=== PATIENT | female | born 1975 | race Caucasian/White ===

== ENCOUNTER 2020-05-02 03:36 | Outpatient (CLI) | payer BC, SELFPAY ==
[2020-05-04 19:19] LABS: COVID-19 RT-PCR Result NEGATIVE (Negative)
== END 2020-05-02 03:56 ==
PROVIDERS: PCP Nurse Practitioner Family; Visit Provider Nurse Practitioner Family
DX: Z20.828 Contact with and (suspected) exposure to other viral communicable diseases (principal); Z11.59 Encounter for screening for other viral diseases
CPT/HCPCS: U0003

== ENCOUNTER 2021-04-01 00:58 | Outpatient (CLI) | payer BC, SELFPAY ==
--- NOTE | 2021-04-01 06:15 | DI.MAMMO_ITS ---
Exam(s) MAMMO SCREENING EXAM: MAMMO SCREENING CLINICAL HISTORY: screening,Z12.39. TECHNIQUE: Bilateral full field digital CC and MLO mammographic images were obtained with 3D tomosyn thesis and utilizing computer aided detection (CAD). COMPARISON: None this is a baseline mammogram on this 46-year-old patient. Family history mother di agnosed with breast cancer in her 50s.. FINDINGS: Fibroglandular tissue pattern is moderately dense, this decreasing sensitivity mammogram for finding hidden underlying lesions. There are no obvious spiculated masses nor malignant-appearing microcalcification groups. There is no significant architectural distortion nor skin thickening-retraction. IMPRESSION: Moderately dense fibroglandular tissue. No obvious radiographic evidence of malignancy. Given the d ensity of this patient's fibroglandular tissue and significant family history, I recommend baseline s creening bilateral complete breast ultrasound. BI-RADS Category 2 - Benign Findings Breast Density - Category C - Heterogeneously dense Breast density Category C or D implies that the patient has dense breast tissue. Dense breast tissue can make it harder to find cancer on a mammogram. Dense breast tissue is also associated with an incr eased risk of breast cancer. This information about the result of the mammogram report was provided to the patient to raise their awareness. Use this report when you speak with the patient about their risks for breast cancer, which includes their family history. At that time, you may recommend additional screening tests (Ultrasoun d or MRI) as these tests may add significant information. A negative radiographic report should not delay biopsy if a dominant or clinically suspicious mass is present. Up to ten percent of cancers are not identified on mammography. A negative report may reinforce clinical impression. Adenosis and dense breasts may obscure an underlying neoplasm. False positive reports average 6 to 10%. Patient will receive a letter notifying them of these results.
== END 2021-04-01 01:18 ==
PROVIDERS: PCP Nurse Practitioner; Visit Provider Nurse Practitioner
DX: Z12.31 Encounter for screening mammogram for malignant neoplasm of breast (principal); Z80.3 Family history of malignant neoplasm of breast
CPT/HCPCS: 77063; 77067

== ENCOUNTER 2021-04-15 02:25 | Outpatient (CLI) | payer BC, SELFPAY ==
[2021-04-15 09:50] LABS: HCT 43.6 % (36.0-46.0); HGB 14.4 g/dL (11.2-15.7); MCH 30.6 pg (27.0-33.0); MCV 92.6 fL (80-95); MPV 9.6 fL (8.0-11.0); Platelet Count 225 10^3/uL (130-400); RBC 4.71 10^6/uL (3.93-5.22); RDW 12.6 % (11.7-14.6); WBC 3.81 10^3/uL (4.4-10.8)
[2021-04-15 11:10] LABS: ALT 22 U/L (14-59); AST 14 U/L (15-37); Albumin 4.1 g/dL (3.4-5.0); Alkaline Phosphatase 62 U/L (46-116); Anion Gap 8.8 mmol/L (3-11); BUN 14 mg/dL (7-18); Bilirubin, Total 1.2 mg/dL (0.2-1.0); CO2 28.2 mmol/L (21.0-32.0); CREATININE 0.8 mg/dL (0.55-1.02); Calcium 8.8 mg/dL (8.5-10.1); Calculated LDL 86 mg/dL (<100); Chloride 103 mmol/L (98-107); Cholesterol 159 mg/dL (<200); Glucose 86 mg/dL (74-106); HDL Cholesterol 62 mg/dL (40-60); Potassium 4.1 mmol/L (3.5-5.1); Sodium 140 mmol/L (136-145); Total Protein 7.1 g/dL (6.4-8.2); Triglyceride 59 mg/dL (<150)
== END 2021-04-15 02:26 | disposition home or self-care (01) ==
LOC: LBO 02:25
PROVIDERS: PCP Nurse Practitioner; Visit Provider Nurse Practitioner
DX: Z13.220 Encounter for screening for lipoid disorders; Z87.09 Personal history of other diseases of the respiratory system
CPT/HCPCS: 36415; 80053; 80061; 85027

== ENCOUNTER 2021-04-23 15:33 | Outpatient (REF) | payer BC, SELFPAY ==
[2021-04-24 22:17] LABS: COVID-19 RT-PCR UVMMC Result Negative (Negative)
== END 2021-04-23 15:34 | disposition home or self-care (01) ==
LOC: LBN 15:33
PROVIDERS: PCP Nurse Practitioner; Visit Provider Nurse Practitioner
DX: Z20.822 Contact with and (suspected) exposure to COVID-19; R09.81 Nasal congestion; R05.8 Other specified cough
CPT/HCPCS: U0003

== ENCOUNTER 2021-09-07 15:45 | Outpatient (REF) | payer BC, SELFPAY ==
[2021-09-09 12:05] LABS: COVID-19 RT-PCR UVMMC Result Positive (Negative)
== END 2021-09-07 15:46 | disposition home or self-care (01) ==
LOC: LBN 15:45
PROVIDERS: PCP Nurse Practitioner; Visit Provider Family Medicine
DX: Z20.822 Contact with and (suspected) exposure to COVID-19 (principal); R06.02 Shortness of breath; R50.9 Fever, unspecified; R53.83 Other fatigue
CPT/HCPCS: U0003

== ENCOUNTER → 2021-09-08 10:17 | Outpatient (CLI) | payer BC, SELFPAY ==
--- NOTE | 2021-09-08 10:17 | DI.RAD_ITS ---
Exam(s) XR CHEST 2V PA LATERAL EXAM: XR CHEST 2V PA LATERAL CLINICAL HISTORY: R/O infiltrates Z20.822 EXPOSURE TO COVID 19. TECHNIQUE: 2D digital imaging was performed. COMPARISON: No exams were available for comparison FINDINGS: 2 views: Heart size is normal. The mediastinum is not widened. There are no infiltrates nor pleural effusions. Mild pleural scarring in the left lung base is noted . IMPRESSION: No acute pulmonary infiltrates nor pleural effusions. There is mild pleural scarring in the left deb g base adjacent to the heart border. DATA REPOSITORY: RADIATION DOSE DELIVERED:
== END ==
PROVIDERS: PCP Nurse Practitioner; Visit Provider Family Medicine
DX: J98.4 Other disorders of lung (principal); Z20.822 Contact with and (suspected) exposure to COVID-19
CPT/HCPCS: 71046

== ENCOUNTER 2021-09-24 16:02 | Emergency (ER) | payer BC, SELFPAY ==
[2021-09-24] VITALS (65 sets, daily range): BP systolic 101–134; BP diastolic 61–79; PULSE 81–116; RESP 13–37; TEMP 36.1; O2SAT 95–100
--- NOTE | 2021-09-24 16:00 | RT.EKG_ITS ---
APPROVED REPORT Exam: Resting ECG Reason for Exam: CHEST PAIN Patient Location: E HR:101 bpm ECG Measurements Heart Rate 101 AXIS WV 96 P 82 QRSd 92 QRS 75 QT 302 T -78 QTc 391 Conclusion Sinus tachycardia...rate> 99 Probable left atrial enlargement...P >50mS, <-0.10mV V1 Repol abnrm suggests ischemia, diffuse leads...ST-T neg, ant/lat/inf
--- NOTE | 2021-09-24 16:30 | DI.CT_ITS ---
Exam(s) CT CHEST PE CTA EXAM: CT CHEST PE CTA CLINICAL HISTORY: chest pain, sob, r/o PE. TECHNIQUE: Imaging Protocol: CT angiography of the chest was performed using pulmonary embolus rodríguez col. Multi planar reconstructions were performed. CONTRAST MATERIAL: Intravenous: Omnipaque 350 Contrast volume: 100 cc COMPARISON: No exams were available for comparison FINDINGS: CHEST: PULMONARY ARTERIES: There are no intraluminal filling defects to suggest acute pulmonary emboli. LUNGS: There are no infiltrates nor evidence of pulmonary infarction.. There are no pleural effusions . No ominous pulmonary nodules. MEDIASTINUM: There is no hilar nor mediastinal adenopathy. Visualized thyroid unremarkable. CARDIAC: Heart size is upper normal. There is no significant pericardial effusion.Caliber of the tho racic aorta is within normal limits. There is no significant shift of the interventricular septum. PARTIALLY VISUALIZED UPPERMOST ABDOMEN: No obvious findings OSSEOUS: No significant osseous lesions.. IMPRESSION: 1. No evidence of acute pulmonary emboli. No evidence of pulmonary infarction.No pleural effusions. 2. No infiltrates nor ominous pulmonary nodules. No intrathoracic adenopathy evident. 3. No significant osseous findings. RADIATION DOSE DELIVERED: 339.71mGy.cm Total DLP DATA REPOSITORY: All CT scans at this facility are submitted to the National Radiology Data Registry (NRDR) Dose Index Registry (DIR) with the [employer] (A[employer]). RADIATION OPTIMIZATION: All CT scans at this facility use at least one of these dose optimization te chniques: automated exposure control; mA and/or kV adjustment per patient size (includes targeted exa ms where dose is matched to clinical indication); or iterative reconstruction.
[2021-09-24 16:41] LABS: Abs Immature Grans 0.01 10^3/uL (0.0-0.06); Absolute Basophil Count 0.03 10^3/uL (0.0-0.2); Absolute Eosinophil Count 0.13 10^3/uL (0.0-0.7); Absolute Lymphocyte Count 2.18 10^3/uL (1.2-3.4); Absolute Monocyte Count 0.26 10^3/uL (0.1-0.8); Absolute Neutrophil Count 2.83 10^3/uL (1.2-6.7); Basophils % 0.6; Eosinophils % 2.4; HCT 42.1 % (36.0-46.0); HGB 14.1 g/dL (11.2-15.7); Immature Grans % 0.2; Lymphocytes % 40.1; MCH 30.2 pg (27.0-33.0); MCHC 33.5 % (32.0-36.0); MCV 90 fL (80-95); MPV 9.7 fL (8.0-11.0); Monocytes % 4.8; Neutrophils % 51.9; Platelet Count 212 10^3/uL (130-400); RBC 4.67 10^6/uL (3.93-5.22); RDW 12.2 % (11.7-14.6); RDW-SD 40.5 fL; WBC 5.44 10^3/uL (4.4-10.8)
[2021-09-24 16:56] LABS: ALT 18 U/L (14-59); AST 17 U/L (15-37); Albumin 4.4 g/dL (3.4-5.0); Alkaline Phosphatase 67 U/L (46-116); Anion Gap 15.1 mmol/L (3-11); BUN 14 mg/dL (7-18); Bilirubin, Total 1.2 mg/dL (0.2-1.0); CO2 20.9 mmol/L (21.0-32.0); CREATININE 1.1 mg/dL (0.55-1.02); Calcium 9.2 mg/dL (8.5-10.1); Chloride 104 mmol/L (98-107); Estimated GFR 53.96 (mL/min/1.73m2); Glucose 106 mg/dL (74-106); Magnesium 1.7 mg/dL (1.8-2.4); Potassium 3.1 mmol/L (3.5-5.1); Sodium 140 mmol/L (136-145); Total Protein 7.9 g/dL (6.4-8.2); Troponin I < 50 ng/L (<or=60)
[2021-09-24] MEDS: Omnipaque 350 MG/ML 100 ML BTL IJ (17:37)
--- NOTE | 2021-09-24 17:40 | W.ED.GENAD ---
Discharge Plan Disposition Patient Disposition: HOME Condition: Improving Discharge Details Clinical Impression: Shortness of breath, Sensation of chest tightness, Hand tingling, History of COVID-19 Primary Care Provider: Maryjo Barraza ED Provider: Denita Giordano Home Meds and New Rx's Prescriptions: Continued cholecalciferol (vitamin D3) 50 mcg (2,000 unit) capsule 50 mcg PO DAILY 0RF Discharge Instructions Instructions: Chest Pain (ED), Paresthesia (ED), Dyspnea (ED) Additional Instructions: Your lab work, EKGs and imaging today is reassuring and shows no evidence of acute concerning or significant findings. Your symptoms are potentially due to post-COVID illness. Drink plenty of fluids and get plenty of rest. Alternate tylenol and motrin as needed and directed for pain. You are being sent home with a few doses of Ativan to take as needed and directed for feelings of shortness of breath or anxiety. Follow-up with your primary care doctor in 1 week for reevaluation and for referral for outpatient stress test or cardiac cath tech if your symptoms persist or worsen. Return to the emergency department with any worsening or new concerning symptoms. Discharge Data Discharge Physician: Denita Giordano Medical Decision Making 163 -- 46-year-old female unvaccinated for COVID and diagnosed with COVID on 09/07/2021 presents for chest tightness and shortness of breath for the past few weeks, worse today and associated with tingling and both of her hands and radiating to her left neck. States the tingling resolved after a few hours today. Heart rate 110 on arrival. EKG noted a rate of 101, sinus with diffuse depression but no STEMI. She is afebrile. She appears significantly anxious. Lungs clear bilaterally. Oxygen saturation 100% on room air. Differential diagnosis includes pneumonia, PE, ACS, electrolyte abnormality, post-COVID illness, dehydration. History and presentation does not appear consistent with dissection. She has no focal deficits on exam. Suspect her history of brief bilateral hand paresthesias likely secondary to hyperventilation in the setting of sensation of difficulty breathing and anxiety. Will place an IV, bolus IV fluids, screening labs, CT chest and give fluids, Ativan and reassess. 1930 --labs and imaging reviewed. Normal white blood cell count. Initial BMP noted below bicarb and high anion gap which may be associated with dehydration or patient's recent hyperventilation causing her bilateral hand paresthesias. BMP results normalized after IV fluids. Ct chest negative for PE. There was incidental finding of 4 mm left upper lobe nodule which was discussed with patient and was indicated would not require follow-up as she is a non-smoker without risk factors. Repeat EKG noted resolution of ST depression and no STEMI. Repeat EKG negative. Patient reassessed and she feels much better and she feels comfortable going home. Will send home with a few tabs of Ativan to take as needed and directed for shortness of breath or anxiety. Advised to call her PCP tomorrow for follow-up next week and for referral for outpatient stress test or cardiac cath tech if her symptoms do not improve or worsen. Usual and customary return precautions given prior to discharge. Medical Records Medical records reviewed: Yes I reviewed the patient's medical records. Imaging Data Radiologic Study: Radiologist's impression: CTA Chest With Contrast Exam date and time: 09/24/2021 5:12 PM Age: 46 years old Clinical indication: Other: Chest pain SOB R/O pe TECHNIQUE: Imaging protocol: Computed tomographic angiography of the chest with contrast. 3D rendering (Not supervised by radiologist): MIP and/or 3D reconstructed images were created by the technologist. Total images: 1945 Contrast material: OMNI 350; Contrast volume: 65 ml; Contrast route: INTRAVENOUS (IV);? COMPARISON: CR XR CHEST 2V PA LATERAL 09/08/2021 10:12 AM FINDINGS: Pulmonary arteries: The pulmonary arteries enhance appropriately with no evidence of pulmonary embolism. Aorta: The aorta enhances appropriately without evidence of dissection or aneurysm. No mediastinal hematoma. Thyroid: The visualized thyroid gland demonstrates no gross abnormality. Lungs: No acute tracheobronchial abnormalities. No gross pulmonary infiltrates or edema pattern. Mild bilateral apical pleural/parenchymal scarring. Pleural spaces: 4 mm nodule in the anterior left apex on series 6, image 122 may represent an additional element of apical pleural/parenchymal scarring but is nonspecific. For patients at low risk (minimal or absent history of smoking and of other known risk factors), no routine follow-up is indicated. For patients at high risk (history of smoking or of other known risk factors), consider optional CT at 12 months. (Saúl et al., Fleischner Society, 2017). No pleural effusion. No pneumothorax. Heart: Heart size normal. No pericardial effusion. Mediastinal space: The esophagus is largely contracted but demonstrates no gross abnormality. Lymph nodes: No supraclavicular or axillary adenopathy. No mediastinal or hilar adenopathy. Intraperitoneal space: Visualized upper abdominal structures are unremarkable. Bones/joints: No acute osseous abnormalities are identified. Soft tissues: The soft tissues of the chest wall demonstrate no acute abnormality. IMPRESSION: 1. No evidence of pulmonary embolism or aortic dissection. 2. No acute process. 3. Mild bilateral apical pleural/parenchymal scarring. 4. A 4 mm nodule in the left apex may represent additional element of apical parenchymal scarring but is nonspecific. Please see follow-up recommendations above. Lab Data Lab results reviewed: Yes I reviewed the patient's lab results. Labs: Laboratory Tests Range/Units 09/24/21 09/24/21 09/24/21 16:32 16:32 18:28 WBC (4.4-10.8) 10^3/uL 5.44 RBC (3.93-5.22) 10^6/uL 4.67 Hgb (11.2-15.7) g/dL 14.1 Hct (36.0-46.0) % 42.1 MCV (80-95) fL 90 MCH (27.0-33.0) pg 30.2 MCHC (32.0-36.0) % 33.5 RDW (11.7-14.6) % 12.2 Plt Count (130-400) 10^3/uL 212 MPV (8.0-11.0) fL 9.7 Immature Gran % 0.2 Neutrophils % 51.9 Lymphocytes % 40.1 Monocytes % 4.8 Eosinophils % 2.4 Basophils % 0.6 Nucleated RBC % (0.0-0.3) % 0.0 Absolute Neutrophils (1.2-6.7) 10^3/uL 2.83 Absolute Lymphocytes (1.2-3.4) 10^3/uL 2.18 Absolute Monocytes (0.1-0.8) 10^3/uL 0.26 Absolute Eosinophils (0.0-0.7) 10^3/uL 0.13 Absolute Basophils (0.0-0.2) 10^3/uL 0.03 Sodium (136-145) mmol/L 140 Potassium (3.5-5.1) mmol/L 3.1 L Chloride (98-107) mmol/L 104 Carbon Dioxide (21.0-32.0) mmol/L 20.9 L Anion Gap (3-11) mmol/L 15.1 H BUN (7-18) mg/dL 14 Creatinine (0.55-1.02) mg/dL 1.1 H Estimated GFR/1.73 m2 (mL/min/1.73m2) 53.96 Glucose (74-106) mg/dL 106 Calcium (8.5-10.1) mg/dL 9.2 Magnesium (1.8-2.4) mg/dL 1.7 L Total Bilirubin (0.2-1.0) mg/dL 1.2 H AST (15-37) U/L 17 ALT (14-59) U/L 18 Alkaline Phosphatase (46-116) U/L 67 Troponin I (<or=60) ng/L < 50 < 50 Total Protein (6.4-8.2) g/dL 7.9 Albumin (3.4-5.0) g/dL 4.4 Range/Units 09/24/21 18:28 WBC (4.4-10.8) 10^3/uL RBC (3.93-5.22) 10^6/uL Hgb (11.2-15.7) g/dL Hct (36.0-46.0) % MCV (80-95) fL MCH (27.0-33.0) pg MCHC (32.0-36.0) % RDW (11.7-14.6) % Plt Count (130-400) 10^3/uL MPV (8.0-11.0) fL Immature Gran % Neutrophils % Lymphocytes % Monocytes % Eosinophils % Basophils % Nucleated RBC % (0.0-0.3) % Absolute Neutrophils (1.2-6.7) 10^3/uL Absolute Lymphocytes (1.2-3.4) 10^3/uL Absolute Monocytes (0.1-0.8) 10^3/uL Absolute Eosinophils (0.0-0.7) 10^3/uL Absolute Basophils (0.0-0.2) 10^3/uL Sodium (136-145) mmol/L 141 Potassium (3.5-5.1) mmol/L 3.7 Chloride (98-107) mmol/L 108 H Carbon Dioxide (21.0-32.0) mmol/L 24.3 Anion Gap (3-11) mmol/L 8.7 BUN (7-18) mg/dL 14 Creatinine (0.55-1.02) mg/dL 0.9 Estimated GFR/1.73 m2 (mL/min/1.73m2) >= 60.00 Glucose (74-106) mg/dL 87 Calcium (8.5-10.1) mg/dL 8.2 L Magnesium (1.8-2.4) mg/dL Total Bilirubin (0.2-1.0) mg/dL AST (15-37) U/L ALT (14-59) U/L Alkaline Phosphatase (46-116) U/L Troponin I (<or=60) ng/L Total Protein (6.4-8.2) g/dL Albumin (3.4-5.0) g/dL ECG Data Attestation: I personally reviewed and interpreted this ECG (s) as follows: Interpretation: #1 -- rate of 101, sinus, [address] depression in 2, 3, aVF, V3, V4, V5 and V6. No STEMI. #2 -- rate of 97, sinus, normal axis, ST depression now resolved. No STEMI. HPI General Mode of arrival: ambulatory. Date/Time Provider Initiated Documentation: 09/24/21 16:04. Limitations to Documentation: no limitations. Information obtained by: patient. HPI Narrative: Patient is a 46-year-old female who is unvaccinated for COVID who was diagnosed with COVID on 09/07/2021 who presents with chest tightness and shortness of breath of the last few week, worse today with tingling in her bilateral hands with radiation up the left side of her neck. She states this lasted for few hours and then resolved and denies any at present. She still admits to chest tightness and shortness of breath. She states she has not received any treatment for COVID. She initially had a cough, fever and fatigue and had a positive COVID test. She states since then the cough, fever and fatigue have improved but now has lingering shortness of breath which was worse today. She denies any vomiting or diarrhea. Related Data Home Medications Medication Instructions Recorded Confirmed cholecalciferol (vitamin D3) 50 50 mcg PO DAILY 03/04/21 09/24/21 mcg (2,000 unit) capsule Allergies Allergy/AdvReac Type Severity Reaction Status Date / Time lactase [From Dairy Aid] AdvReac Severe severe Verified 09/24/21 16:15 diarrhea Stuffy nose, coug, headache Allergy Mild Uncoded 09/24/21 16:15 General Stated Complaint: SOB LINDA: 3 Review of Systems All systems reviewed & are unremarkable except as noted in HPI and below Constitutional Constitutional: Denies chills, Denies excessive sweating, Denies fatigue, Denies fever(s), Denies weakness and Denies weight loss Eyes Eyes: Reports system reviewed and no additional complaints, except as documented and Denies blurry vision ENT Ears, Nose, Mouth, and Throat: Denies vertigo, Denies dizziness, Denies otalgia, Denies nasal congestion, Denies sore throat and Denies throat swelling Cardiovascular Cardiovascular: Reports chest pain (chest tightness), Denies syncope, Denies rapid heart rate and Reports dyspnea Respiratory Respiratory: Denies chest congestion, Denies cough, Denies pain on inspiration and Reports dyspnea Gastrointestinal Gastrointestinal: Denies abdominal pain, Denies diarrhea and Denies vomiting Genitourinary Genitourinary: Denies hematuria, Denies dysuria and Denies flank pain Musculoskeletal Musculoskeletal: Denies back pain, Denies joint swelling and Reports tingling (in hands b/l, brief episode) Integumentary/Breasts Skin/Breast: Denies lesions and Denies rash Neurologic Neurologic: Denies behavioral changes, Denies confusion, Denies vertigo, Denies dizziness, Denies syncope, Denies localized weakness, Reports tingling (in hands b/l, brief episode) and Denies weakness Psychiatric Psychiatric: Denies behavioral changes, Denies confusion and Denies depression Endocrine Endocrine: Denies excessive sweating and Denies fatigue Hematologic/Lymphatic Hematologic/Lymphatic: Denies easy bruising and Denies lymphadenopathy Allergic/Immunologic Allergic/Immunologic: Denies throat swelling PFSH All Active Problems (Updated 09/24/21 @ 19:47 by Denita Giordano DO) Shortness of breath (Acute) Sensation of chest tightness (Acute) Hand tingling (Acute) History of COVID-19 (Acute) SARS-CoV-2 positive (Acute ~08/2021) Family history of breast cancer in first degree relative (Acute) Screening for cholesterol level (Acute) Encounter to establish care (Acute) Medical History (Updated 09/24/21 @ 19:47 by Denita Giordano DO) No significant past medical history Surgical History (Updated 09/24/21 @ 19:47 by Denita Giordano DO) History of hernia repair Social History (Updated 03/04/21 @ 08:53 by Farida Red RN) Smoking/Tobacco Use Status: Never Second Hand Exposure: No Smoking risk assessment performed?: Yes Alcohol Intake: never Drug use: Never Substance use type: does not use Adopted: No Caregiver/Support person: No Foster care: No Household members: spouse Housing: house Number of Children: 0 number of grandchildren: 0 Communication Needs: Corrective Lenses Education Level: college Do you need help understanding health information?: Rarely Pets and animals: No Sexually active: Yes Current gender identity: female What is your relationship status?: How often do you talk on the phone with friends or family?: once per week How often do you get together with friends or relatives?: three or more times per week Do you belong to any clubs or organized social groups?: no Panel score (0-1 are the most socially isolated patients): 2 What type of physical activity do you participate in: walking, aerobic and yoga Duration: 60-90 minutes/day Frequency: daily Special morales needs: No Seatbelt use: always Helmet use: Yes Drive intox or ride w/intox route sales delivery driver: No Do you feel safe at home: Yes Do you feel safe in your relationship?: Yes Exam Const General: cooperative and anxious Orientation: alert, awake and oriented x3 HENMT Head: normal to inspection Ears: hearing grossly normal bilaterally, external ears normal and TM's normal bilaterally General nose exam: external nose normal Face and sinus: normal facial exam Mouth: oral mucosae normal Teeth and gingiva: dentition normal Throat: posterior oropharynx normal Eyes General: appearance normal, both eyes and all related structures Eyelids: eyelids normal Pupils: PERRL EOM: EOM intact bilaterally Neck Neck: normal visual inspection Lymphatic: no lymphadenopathy noted Chest Chest: normal inspection of the chest Resp Effort & Inspection: normal respiratory effort and able to speak in complete sentences Auscultation: clear to auscultation bilaterally Cardio Rate: tachycardic Rhythm: regular rhythm GI Inspection: normal to inspection Palpation: soft, not firm, no guarding, no hepatosplenomegaly, no masses and nontender Auscultation: normal bowel sounds Back/Spine/Pelvis Back: no CVA tenderness Skin General skin exam: no rashes or lesions noted Neuro General: patient alert and patient awake Cognition: normal cognition Speech: speech normal Gait: normal gait Motor: muscle tone normal throughout Sensory Exam: no sensory deficits noted Extrem General: normal to inspection, full ROM and capillary refill normal Psych Appearance: grossly normal Mental Status: mental status grossly normal Speech and Movement: speech and movement normal Affect: normal affect Thought Process: normal Course Vital Signs Vital signs: Vital Signs Temperature 97 F L 09/24/21 16:07 Pulse 116 H 09/24/21 16:07 Respiratory Rate 28 H 09/24/21 16:07 Blood Pressure 134/79 09/24/21 16:07 Pulse Oximetry 97 09/24/21 16:07 Temperature 97 F L 09/24/21 16:07 Pulse 85 09/24/21 17:21 Pulse 90 09/24/21 17:00 Respiratory Rate 21 09/24/21 17:29 Respiratory Effort 09/24/21 16:15 Respiratory Depth Shallow 09/24/21 16:15 Respiratory Pattern Tachypnea 09/24/21 16:15 Blood Pressure 117/68 09/24/21 17:21 Blood Pressure Mean 78 09/24/21 16:53 Pulse Oximetry 100 09/24/21 17:29 Oxygen Delivery Method Room Air 09/24/21 16:07 Oxygen Flow Rate 0 09/24/21 16:07 Pain Level 6 09/24/21 16:15 Lab/Test Results Lab/Test Results: Laboratory Tests Range/Units 09/24/21 09/24/21 16:32 16:32 WBC (4.4-10.8) 10^3/uL 5.44 RBC (3.93-5.22) 10^6/uL 4.67 Hgb (11.2-15.7) g/dL 14.1 Hct (36.0-46.0) % 42.1 MCV (80-95) fL 90 MCH (27.0-33.0) pg 30.2 MCHC (32.0-36.0) % 33.5 RDW (11.7-14.6) % 12.2 Plt Count (130-400) 10^3/uL 212 MPV (8.0-11.0) fL 9.7 Immature Gran % 0.2 Neutrophils % 51.9 Lymphocytes % 40.1 Monocytes % 4.8 Eosinophils % 2.4 Basophils % 0.6 Nucleated RBC % (0.0-0.3) % 0.0 Absolute Neutrophils (1.2-6.7) 10^3/uL 2.83 Absolute Lymphocytes (1.2-3.4) 10^3/uL 2.18 Absolute Monocytes (0.1-0.8) 10^3/uL 0.26 Absolute Eosinophils (0.0-0.7) 10^3/uL 0.13 Absolute Basophils (0.0-0.2) 10^3/uL 0.03 Sodium (136-145) mmol/L 140 Potassium (3.5-5.1) mmol/L 3.1 L Chloride (98-107) mmol/L 104 Carbon Dioxide (21.0-32.0) mmol/L 20.9 L Anion Gap (3-11) mmol/L 15.1 H BUN (7-18) mg/dL 14 Creatinine (0.55-1.02) mg/dL 1.1 H Estimated GFR/1.73 m2 (mL/min/1.73m2) 53.96 Glucose (74-106) mg/dL 106 Calcium (8.5-10.1) mg/dL 9.2 Magnesium (1.8-2.4) mg/dL 1.7 L Total Bilirubin (0.2-1.0) mg/dL 1.2 H AST (15-37) U/L 17 ALT (14-59) U/L 18 Alkaline Phosphatase (46-116) U/L 67 Troponin I (<or=60) ng/L < 50 Total Protein (6.4-8.2) g/dL 7.9 Albumin (3.4-5.0) g/dL 4.4 POC- Test(urine) Negative
[2021-09-24] MEDS: LORazepam 2 MG/ML VIAL 0.5 MG IVP (17:52)
[2021-09-24] MEDS: Normal Saline 1,000 ML 1000 ML IV ×2 (17:54→18:42)
--- NOTE | 2021-09-24 18:00 | RT.EKG_ITS ---
APPROVED REPORT Exam: Resting ECG Reason for Exam: chest tightness Patient Location: E HR:97 bpm ECG Measurements Heart Rate 97 AXIS ID 102 P 86 QRSd 95 QRS 74 QT 348 T 3 QTc 442 Conclusion Sinus rhythm...normal P axis, V-rate 60- 99. Sinus. Normal axis. No STEMI. I have reviewed and interpreted ECG and agree with software generated interpretation.
--- NOTE | 2021-09-24 18:07 | DI.VRAD_ITS ---
PROCEDURE INFORMATION: Exam: CTA Chest With Contrast Exam date and time: 09/24/2021 5:12 PM Age: 46 years old Clinical indication: Other: Chest pain SOB R/O pe TECHNIQUE: Imaging protocol: Computed tomographic angiography of the chest with contrast. 3D rendering (Not supervised by radiologist): MIP and/or 3D reconstructed images were created by the technologist. Total images: 1945 Contrast material: OMNI 350; Contrast volume: 65 ml; Contrast route: INTRAVENOUS (IV); COMPARISON: CR XR CHEST 2V PA LATERAL 09/08/2021 10:12 AM FINDINGS: Pulmonary arteries: The pulmonary arteries enhance appropriately with no evidence of pulmonary embolism. Aorta: The aorta enhances appropriately without evidence of dissection or aneurysm. No mediastinal hematoma. Thyroid: The visualized thyroid gland demonstrates no gross abnormality. Lungs: No acute tracheobronchial abnormalities. No gross pulmonary infiltrates or edema pattern. Mild bilateral apical pleural/parenchymal scarring. Pleural spaces: 4 mm nodule in the anterior left apex on series 6, image 122 may represent an additional element of apical pleural/parenchymal scarring but is nonspecific. For patients at low risk (minimal or absent history of smoking and of other known risk factors), no routine follow-up is indicated. For patients at high risk (history of smoking or of other known risk factors), consider optional CT at 12 months. (Saúl et al., Fleischner Society, 2017). No pleural effusion. No pneumothorax. Heart: Heart size normal. No pericardial effusion. Mediastinal space: The esophagus is largely contracted but demonstrates no gross abnormality. Lymph nodes: No supraclavicular or axillary adenopathy. No mediastinal or hilar adenopathy. Intraperitoneal space: Visualized upper abdominal structures are unremarkable. Bones/joints: No acute osseous abnormalities are identified. Soft tissues: The soft tissues of the chest wall demonstrate no acute abnormality. IMPRESSION: 1. No evidence of pulmonary embolism or aortic dissection. 2. No acute process. 3. Mild bilateral apical pleural/parenchymal scarring. 4. A 4 mm nodule in the left apex may represent additional element of apical parenchymal scarring but is nonspecific. Please see follow-up recommendations above. Dictated and Authenticated by: Kahlil Nash MD. Ordering:PAUL Barger MD
[2021-09-24] MEDS: Potassium Chloride 20 MEQ TABCR 40 MEQ PO (18:42)
[2021-09-24 18:49] LABS: Anion Gap 8.7 mmol/L (3-11); BUN 14 mg/dL (7-18); CO2 24.3 mmol/L (21.0-32.0); CREATININE 0.9 mg/dL (0.55-1.02); Calcium 8.2 mg/dL (8.5-10.1); Chloride 108 mmol/L (98-107); Glucose 87 mg/dL (74-106); Potassium 3.7 mmol/L (3.5-5.1); Sodium 141 mmol/L (136-145)
[2021-09-24 18:58] LABS: Troponin I < 50 ng/L (<or=60)
== END 2021-09-24 19:56 | disposition home or self-care (01) ==
PROVIDERS: Emergency Provider Physician Assistant; PCP Nurse Practitioner
DX: R06.02 Shortness of breath (principal); R07.89 Other chest pain; R20.2 Paresthesia of skin; Z86.16 Personal history of COVID-19; Z28.310 Unvaccinated for COVID-19
CPT/HCPCS: 71275; 80048; 80053; 81025; 93005; 96361; 96374; 99285; 83735; 84484; 85025; 93010; 99284; J2060; J3490

== ENCOUNTER → 2022-03-10 12:49 | Outpatient (CLI) | payer BC, SELFPAY ==
--- NOTE | 2022-03-10 10:50 | DI.RAD_ITS ---
Exam(s) XR SHOULDER LT COMPLETE 2+V EXAM: XR SHOULDER LT COMPLETE 2+V CLINICAL HISTORY: bilat shoulder pain, ? calcific tendonitis. TECHNIQUE: 2D digital imaging was performed. COMPARISON: CR XR SHOULDER RT COMPLETE 2+V from 03/10/2022 FINDINGS: Five views: No evidence of fracture or dislocation or abnormal soft tissue calcifications. Subacromial space yaakov ears un remarkable. No degenerative changes evident in the glenohumeral and AC joints. Ipsilateral clavicle appears unremarkable. No os acromiale. IMPRESSION: No significant osseous findings. DATA REPOSITORY: RADIATION DOSE DELIVERED:
--- NOTE | 2022-03-10 10:50 | DI.RAD_ITS ---
Exam(s) XR SHOULDER RT COMPLETE 2+V EXAM: XR SHOULDER RT COMPLETE 2+V CLINICAL HISTORY: bilat shoulder pain, ?calcific tendonitis, m25.512, m25.511. TECHNIQUE: 2D digital imaging was performed. COMPARISON: No exams were available for comparison FINDINGS: Five views: No evidence of fracture or dislocation nor abnormal soft tissue calcification. Subacromial space yaakov ears unremarkable. Minimal degenerative changes in the glenohumeral joint. AC joint appears unremar kable as does the ipsilateral clavicle. Bone density normal. No osseous lesions. IMPRESSION: As above. DATA REPOSITORY: RADIATION DOSE DELIVERED:
== END ==
PROVIDERS: PCP Nurse Practitioner; Visit Provider Nurse Practitioner
DX: M25.511 Pain in right shoulder (principal); M25.512 Pain in left shoulder
CPT/HCPCS: 73030

== ENCOUNTER 2022-03-16 16:03 | Outpatient (CLI) | payer BC, SELFPAY ==
[2022-03-16 16:20] LABS: Abs Immature Grans 0.01 10^3/uL (0.0-0.06); Absolute Basophil Count 0.07 10^3/uL (0.0-0.2); Absolute Eosinophil Count 0.16 10^3/uL (0.0-0.7); Absolute Lymphocyte Count 2.55 10^3/uL (1.2-3.4); Absolute Monocyte Count 0.39 10^3/uL (0.1-0.8); Absolute Neutrophil Count 2.71 10^3/uL (1.2-6.7); Basophils % 1.2; Eosinophils % 2.7; HCT 42.3 % (36.0-46.0); HGB 14.2 g/dL (11.2-15.7); Immature Grans % 0.2; Lymphocytes % 43.3; MCH 30.4 pg (27.0-33.0); MCHC 33.6 % (32.0-36.0); MCV 91 fL (80-95); MPV 8.8 fL (8.0-11.0); Monocytes % 6.6; Platelet Count 326 10^3/uL (130-400); RBC 4.67 10^6/uL (3.93-5.22); RDW 12.3 % (11.7-14.6); RDW-SD 40.9 fL; WBC 5.89 10^3/uL (4.4-10.8)
[2022-03-16 16:46] LABS: ALT 40 U/L (14-59); AST 29 U/L (15-37); Albumin 4.1 g/dL (3.4-5.0); Alkaline Phosphatase 64 U/L (46-116); Anion Gap 5.7 mmol/L (3-11); BUN 14 mg/dL (7-18); Bilirubin, Total 0.5 mg/dL (0.2-1.0); CO2 29.3 mmol/L (21.0-32.0); CREATININE 1.2 mg/dL (0.55-1.02); Calcium 9.1 mg/dL (8.5-10.1); Chloride 103 mmol/L (98-107); Estimated GFR 56.89 (mL/min/1.73m2); Glucose 91 mg/dL (74-106); Potassium 3.8 mmol/L (3.5-5.1); Sodium 138 mmol/L (136-145); Total Protein 7.9 g/dL (6.4-8.2)
== END 2022-03-16 16:04 | disposition home or self-care (01) ==
LOC: LBO 16:05
PROVIDERS: PCP Nurse Practitioner; Visit Provider Family Medicine
DX: T50.905A Adverse effect of unspecified drugs, medicaments and biological substances, initial encounter (principal)
CPT/HCPCS: 36415; 80053; 85025

== ENCOUNTER 2022-07-07 01:07 | Outpatient (CLI) | payer BC, SELFPAY ==
--- NOTE | 2022-07-07 06:30 | DI.MRI_ITS ---
Exam(s) MR UPPER JOINT RT WO EXAM: MR UPPER JOINT RT WO CLINICAL HISTORY: R SHOULDER PAIN,rt rotator cuff tear,m75.101. TECHNIQUE: Multiplanar multisequence MRI was performed. COMPARISON: Plain films 10 March 2022 FINDINGS: BONES: There is no fracture or contusion pattern. Mild focal edema in the superior humeral head near supraspinatus insertion JOINTS:The acromioclavicular joint is normal. The glenohumeral joint is normal. TENDONS: Supraspinatus: Thickening distally with some intrasubstance signal. Focal tear anteriorly at the ins ertion on humeral head. Infraspinatus: Unremarkable. Subscapularis: Unremarkable. Teres Minor: Unremarkable. Biceps and Marion: Unremarkable. MUSCLES: Unremarkable. GLENOID LABRUM: Unremarkable on this noncontrast examination. SOFT TISSUES: Unremarkable. OTHER: Subacromial and subdeltoid bursae shows minimal fluid. IMPRESSION: Supraspinatus tendinosis with tear involving the anterior portion at the insertion. DATA REPOSITORY:
== END 2022-07-07 01:27 ==
LOC: DI 01:07
PROVIDERS: PCP Nurse Practitioner; Visit Provider Student in an Organized Health Care Education/Training Program
DX: M75.101 Unspecified rotator cuff tear or rupture of right shoulder, not specified as traumatic (principal)
CPT/HCPCS: 73221

== ENCOUNTER 2024-01-30 01:18 | Outpatient (CLI) | payer BC, SELFPAY ==
--- NOTE | 2024-01-30 08:45 | DI.MAMMO_ITS ---
Exam(s) MAMMO SCREENING EXAM: MAMMO SCREENING CLINICAL HISTORY: screening Z12.39 TECHNIQUE: Mammograms were interpreted according to the usual protocol including computer analysis w [employer] CAD system, tomosynthesis and C-view imaging. COMPARISON: 2020 FINDINGS: The breasts are composed of heterogeneously dense fibroglandular densities, Breast Density category C . No suspicious masses or suspicious microcalcifications are seen. No skin thickening or abnormal axillary lymph nodes are seen. There has been no significant change from prior exams. IMPRESSION: BI-RADS Category 1, Negative mammogram. Yearly screening mammography is recommended. Breast Density Category C, heterogeneously Dense. The mammogram demonstrates the patient's breast tissue is dense. Dense breast tissue is very common a nd is not abnormal but dense breast tissue can make it harder to find cancer on a mammogram. Also, de nse breast tissue may increase breast cancer risk. This information about the result of the mammogram report was provided to the patient to raise their awareness. Use this report when you speak with the patient about their risks for breast cancer, which includes their family history. At that time, you may recommend additional screening tests (Ultrasound or MRI) as they might be useful based on their r isk. A negative radiographic report should not delay biopsy if a dominant or clinically suspicious mass is present. Up to ten percent of cancers are not identified on mammography. A negative report may reinforce clinical impression. Adenosis and dense breasts may obscure an underlying neoplasm. False positive reports average 6 to 10%.
--- NOTE | 2024-01-30 15:00 | DI.MRI_ITS ---
Exam(s) MR CERVICAL SPINE WO EXAM: MR CERVICAL SPINE WO CLINICAL HISTORY: chronic neck pain G25.89 EXTRAPYRAMIDAL MOVEMENT DISORDER M54.2 CERVICALGIA TECHNIQUE: Multiplanar multisequence MRI of the cervical spine was performed without intravenous con trast. COMPARISON: No exams were available for comparison FINDINGS: BONES: Vertebral body heights are maintained. Alignment is normal. Bone marrow signal intensity is wi thin normal limits. CERVICAL CORD: Craniovertebral junction is unremarkable. The cervical cord is normal size and signal intensity. SOFT TISSUES: Unremarkable. C2-3: No disc herniation or bulge is identified. No evidence of neural foraminal narrowing. No signi ficant central canal stenosis. C3-4: No disc herniation or bulge is identified. No evidence of neural foraminal narrowing. No signif icant central canal stenosis. C4-5: No disc herniation or bulge is identified. No evidence of neural foraminal narrowing. No signif icant central canal stenosis. C5-6: No disc herniation or bulge is identified. No evidence of neural foraminal narrowing. No signif icant central canal stenosis. C6-7: Minimal disc bulging. No focal disc herniation is identified. No evidence of neural foraminal narrowing. No significant central canal stenosis. C7-T1: No disc herniation or bulge is identified. No evidence of neural foraminal narrowing. No signi ficant central canal stenosis. IMPRESSION: Unremarkable MRI of the cervical spine. DATA REPOSITORY:
== END 2024-01-30 01:38 ==
LOC: DI 01:18
PROVIDERS: PCP Nurse Practitioner; Visit Provider Nurse Practitioner
DX: Z12.31 Encounter for screening mammogram for malignant neoplasm of breast (principal); M54.2 Cervicalgia
CPT/HCPCS: 77063; 77067; 72141

== ENCOUNTER 2025-02-07 12:45 | Emergency (ER) | payer BC, SELFPAY ==
[2025-02-07 12:48] VITALS: BP 144/90; PULSE 110; RESP 18; TEMP 36.6; O2SAT 99
[2025-02-07 12:51] VITALS: BP 144/90; PULSE 110; RESP 18; TEMP 36.6; O2SAT 99
--- NOTE | 2025-02-07 13:00 | DI.CT_ITS ---
Exam(s) CT BRAIN NECK CTA EXAM: CT BRAIN NECK CTA CLINICAL HISTORY: neck injury during yoga, PHAN, dizziness, c2 pain. TECHNIQUE: Imaging Protocol: Axial CT angiography was performed with multi- slice acquisition and multi-planar and/or 3D reconstructions. CONTRAST MATERIAL: Intravenous: Omnipaque 350 Contrast volume:structured data in ml COMPARISON: CT CT THORACIC SPINE WO from 02/07/2025 FINDINGS: CTA Neck W: Aortic arch anatomy: The aortic arch anatomy is conventional and there is no significant stenosis at the origin of the great vessels off of the aortic arch. No intimal flap evident. Anterior circulation: Both common carotid arteries ascend with normal luminal diameters. At the level the carotid bulbs and proximal internal carotid arteries there is minimal plaque without hemodynamically significant stenosis evident. Posterior circulation: Both vertebral arteries originate in conventional fashion off of the subclavian arteries and there is no obvious stenosis at the origin of the vertebral arteries. Both vertebral arteries exhibit normal luminal diameters within the foramen transversarium. No evidence of stenosis, thrombosis, nor dissection. However, at C 2-3 and C3-4 levels in the left foramen transverse area and there is some vascular blush around the otherwise normal appearing vertebral arteries. Possibly significant Both vertebral arteries contribute to the formation of the basilar artery at the skull base. CTA Brain W: Anterior circulation: Both internal carotid arteries are patent in the skull base-carotid canals as well as within the cavernous sinuses. The supraclinoid aspects of the ICAs are patent. Both A1 segments are patent as are the anterior cerebral arteries and there is no evidence of aneurysm at the level of the anterior communicating artery. Both middle cerebral arteries are patent with no evidence of significant stenosis nor intraluminal thrombus. There also no aneurysms of these vessels. Posterior circulation: The basilar artery ascends in the midline. Distally it gives off patent bilateral superior cerebellar arteries. Above this level the basilar artery terminates as patent bilateral posterior cerebral arteries. There is no evidence of aneurysm at the tip of the basilar artery nor elsewhere in the [id number]. CT BRAIN: There is no evidence of intracranial hemorrhage, mass effect, or shift of midline structures. There are no extra-axial fluid collections. Ventricles are not enlarged or shifted. There are no ring enhancing lesions in the brain and no abnormal meningeal enhancement. IMPRESSION: 1. Patent carotid arteries in the neck. No hemodynamically significant stenosis. No dissection 2. Patent vertebral arteries. No thrombosis nor dissection. However, the C2-3 and C3-4 left neural foramina there is some vascular blush around the vertebral arteries. This may be artifact and related to slightly later than typical image acquisition on this study (therefore venous). Recommend MRI of the cervical spine. 3. Patent intracranial arteries. No stenosis nor thrombosis nor dissection. No evidence of intracranial hemorrhage, intra or extra-axial. No ring enhancing lesions in the brain. No vascular malformations Report called by myself to ER provider 02/07/2025 at 2:48 p.m. RADIATION DOSE DELIVERED: 2,246.54mGy.cm Total DLP DATA REPOSITORY: All CT scans at this facility are submitted to the National Radiology Data Registry (NRDR) Dose Index Registry (DIR) with the [employer] (A[employer]). RADIATION OPTIMIZATION: All CT scans at this facility use at least one of these dose optimization techniques: automated exposure control; mA and/or kV adjustment per patient size (includes targeted exams where dose is matched to clinical indication); or iterative reconstruction.
--- NOTE | 2025-02-07 13:00 | DI.CT_ITS ---
Exam(s) CT CERVICAL SPINE WO EXAM: CT CERVICAL SPINE WO CLINICAL HISTORY: c2-3 pain, turned neck during yoga. TECHNIQUE: Imaging Protocol: Axial computed tomography images with coronal and sagittal reformatted images were created and reviewed COMPARISON: No exams were available for comparison FINDINGS: CERVICAL SPINE: There is no evidence of acute fracture. No significant prevertebral soft tissue swelling. No significant listhesis. No large disc protrusions evident. No disc space narrowing nor Luschka joint osteophytes. There is no significant facet arthropathy nor facet joint malalignment. No significant osseous lesions evident. Bone density normal IMPRESSION: No evidence of cervical spine fracture, malalignment, nor acute compromise of the cervical spinal canal. RADIATION DOSE DELIVERED: 2,020.07mGy.cm Total DLP DATA REPOSITORY: All CT scans at this facility are submitted to the National Radiology Data Registry (NRDR) Dose Index Registry (DIR) with the [employer] (A[employer]). RADIATION OPTIMIZATION: All CT scans at this facility use at least one of these dose optimization techniques: automated exposure control; mA and/or kV adjustment per patient size (includes targeted exams where dose is matched to clinical indication); or iterative reconstruction.
[2025-02-07 13:18] LABS: Abs Immature Grans 0.01 10^3/uL (0.0-0.06); HCT 42.7 % (36.0-46.0); HGB 14.3 g/dL (11.2-15.7); Immature Grans % 0.1 %; MCH 29.7 pg (27.0-33.0); MCHC 33.5 % (32.0-36.0); MCV 89 fL (80-95); MPV 9.3 fL (8.0-11.0); Platelet Count 228 10^3/uL (130-400); RBC 4.81 10^6/uL (3.93-5.22); RDW 12.2 % (11.7-14.6); RDW-SD 40.1 fL; WBC 7.49 10^3/uL (4.4-10.8)
[2025-02-07] MEDS: ACETAMINOPHEN 500 MG/50 ML BAG 200 MG IVPB (13:24)
[2025-02-07] MEDS: Dexamethasone 10 MG/ML VIAL IVP (13:24)
[2025-02-07] MEDS: diazePAM 10 MG/2 ML SYR 5 MG IVP (13:24)
[2025-02-07] MEDS: Normal Saline 1,000 ML 1000 ML IV (13:24)
[2025-02-07] MEDS: Prochlorperazine 10 MG/2 ML VIAL 5 MG IVP (13:25)
--- NOTE | 2025-02-07 13:30 | DI.CT_ITS ---
Exam(s) CT LUMBAR SPINE WO EXAM: CT LUMBAR SPINE WO CLINICAL HISTORY: back pain. TECHNIQUE: Imaging Protocol: Axial computed tomography images with coronal and sagittal reformatted images were created and reviewed COMPARISON: CT CT THORACIC SPINE WO from 02/07/[address] BRAIN NECK CTA from 02/07/[address] CERVICAL SPINE WO from 02/07/2025 FINDINGS: Bones: There are no fractures, listhesis, nor pars defects. No disc space narrowing. Facet joints appear unremarkable. No degenerative changes. No facet malalignment.No sacral fractures nor lesions. SI joints appear unremarkable. INDIVIDUAL LEVELS: T12-L1:No disc herniation nor canal stenosis. Facet joints unremarkable. No foraminal stenosis. L1-2: No disc herniation nor canal stenosis. Facet joints unremarkable. No foraminal stenosis. L2-3: No disc herniation nor canal stenosis. Facet joints unremarkable. No Foraminal stenosis L3-4: No disc herniation nor significant canal stenosis. Facet joints unremarkable. No foraminal stenosis. L4-5: No disc herniation nor canal stenosis. Facet joints unremarkable. No foraminal stenosis. L5-S1: No disc herniation or canal stenosis. Facet joints unremarkable. No foraminal stenosis. The visualized sacroiliac joints and sacrum appear unremarkable. Sacral canal appears unremarkable. PARASPINAL SOFT TISSUES: Visualized paraspinal tissues appear unremarkable. Normal variant appearance of the transverse process is L1 noted. IMPRESSION: 1. No significant findings on this CT scan of the lumbosacral spinal column. 2. If clinically indicated follow-up MRI can be performed Report called by myself to ER provider 02/07/2025 at 2:30 p.m. RADIATION DOSE DELIVERED: 2,020.07mGy.cm Total DLP DATA REPOSITORY: All CT scans at this facility are submitted to the National Radiology Data Registry (NRDR) Dose Index Registry (DIR) with the [employer] ([employer]). RADIATION OPTIMIZATION: All CT scans at this facility use at least one of these dose optimization techniques: automated exposure control; mA and/or kV adjustment per patient size (includes targeted exams where dose is matched to clinical indication); or iterative reconstruction.
--- NOTE | 2025-02-07 13:30 | DI.CT_ITS ---
Exam(s) CT THORACIC SPINE WO EXAM: CT THORACIC SPINE WO CLINICAL HISTORY: thoracic pain post hyperextension and flexion. TECHNIQUE: Imaging Protocol: Axial computed tomography images with coronal and sagittal reformatted images were created and reviewed. CONTRAST MATERIAL: Intravenous: None COMPARISON: CT CT LUMBAR SPINE WO from 02/07/2025 FINDINGS: Bones: No evidence of thoracic vertebral fractures nor listhesis. No significant facet arthropathy nor facet joint malalignment. There is no scoliosis. Bone density normal. No osseous lesions. No spinal canal stenosis. Soft tissues: There are no large disk herniations seen. No evidence of paraspinal hematoma. IMPRESSION: No significant findings on this CT scan of the thoracic spinal column RADIATION DOSE DELIVERED: 2,020.07mGy.cm Total DLP DATA REPOSITORY: All CT scans at this facility are submitted to the National Radiology Data Registry (NRDR) Dose Index Registry (DIR) with the [employer] ([employer]). RADIATION OPTIMIZATION: All CT scans at this facility use at least one of these dose optimization techniques: automated exposure control; mA and/or kV adjustment per patient size (includes targeted exams where dose is matched to clinical indication); or iterative reconstruction.
[2025-02-07 13:31] LABS: ESR 9 mm/hr (0-20)
[2025-02-07 13:42] LABS: ALT 21 U/L (14-59); AST 18 U/L (15-37); Albumin 4.6 g/dL (3.4-5.0); Alkaline Phosphatase 62 U/L (46-116); Anion Gap 11.1 mmol/L (3-11); BUN 10 mg/dL (7-18); Bilirubin, Total 1.2 mg/dL (0.2-1.0); CO2 25.9 mmol/L (21.0-32.0); Calcium 9.7 mg/dL (8.5-10.1); Chloride 106 mmol/L (98-107); Estimated GFR 79.35 (mL/min/1.73m2); Glucose 105 mg/dL (74-106); Sodium 143 mmol/L (136-145); Total Protein 8.0 g/dL (6.4-8.2)
[2025-02-07 13:52] LABS: C-Reactive Protein < 0.50 mg/dL (<or=0.5)
[2025-02-07 13:53] LABS: Potassium 2.9 mmol/L (3.5-5.1)
[2025-02-07] MEDS: Normal Saline Flush 10 ML SYR IVP (13:54)
[2025-02-07] MEDS: Normal Saline - Diluent 50 ML VIAL IJ (13:54)
[2025-02-07] MEDS: Omnipaque 350 MG/ML 500 ML BTL-Imaging package IJ (13:54)
--- NOTE | 2025-02-07 14:00 | RT.EKG_ITS ---
APPROVED REPORT Exam: Resting ECG Reason for Exam: hypokalemia Patient Location: E HR:83 bpm ECG Measurements Heart Rate 83 AXIS VA 102 P 78 QRSd 93 QRS 72 QT 370 T 38 QTc 434 Conclusion Sinus rhythm...normal P axis, V-rate 60- 99
[2025-02-07] MEDS: MAGNESIUM SULFATE 1 GM/100 ML BAG IV_INF (14:22)
[2025-02-07] MEDS: diazePAM 10 MG/2 ML SYR 2.5 MG IVP (14:25)
--- NOTE | 2025-02-07 15:39 | W.ED.GENAD ---
Discharge Plan Disposition Patient Disposition: Home Condition: Stable Discharge Details Clinical Impression: Headache, Neck pain Primary Care Provider: Maryjo Barraza ED Provider: Ronny Elizalde Home Meds and New Rx's Prescriptions: New cyclobenzaprine 10 mg tablet 10 mg PO TID PRNQty: 30 0RF Continued cholecalciferol (vitamin D3) 50 mcg/drop (2, 000 unit/drop) drops 50 mcg PO DAILY Discharge Instructions Instructions: Cyclobenzaprine, Headache, Adult ED, Neck Pain ED Additional Instructions: You were seen in the emergency department for your headache and neck pain, your CT scan had an equivocal read for was called a vertebral dissection but you have no symptoms of this and your MRI shows no abnormality. I spoke with vascular surgery on-call at [facility] they agree that we do not need to treat this but I do recommend that you get an ultrasound of the vessels of your neck in about 6 months by outpatient study. Please use therapeutic dosing of Tylenol (acetamenophen) & Advil (ibuprofen) in an alternating fashion as follows: Take 1000mg of Tylenol every 6 hours without missing doses- that is 4 times per day. [place] in between the Tylenol dosings, take 400-600mg of Advil also on a 6 hour schedule, that is also 4 times per day. The daily maximum dosing of Tylenol is 4000mg, and the daily maximum dosing of Advil is 2400mg. This is safe to do for weeks. Please note that some common cold medications & prescription pain medications may contain acetamenophen and you need to read OTC drug labels and factor that in to maximum daily dosings. Take the prescribed cyclobenzaprine for muscle relaxation 3 times as needed daily, take it easy on neck exercises until you improve, if you start to experience any neurological symptoms you need to present to a tertiary care center, please return for any emergent concerns Referrals: Maryjo Barraza, [place] [Primary Care Provider, Medicine] Discharge Data Discharge Date/Time-TO BE ENTERED AT DEPARTURE: 02/07/25 17:51 HPI General Date/Time Provider Initiated Documentation: 02/07/25 12:56. HPI Narrative: This 49-year-old female presents with report of neck pain and headache which started after doing a flexion extension position in yoga on Tuesday. She denies any dizziness or weakness to her extremities. She states she is able to walk with discomfort. She states yesterday she was in the shower and she developed some strong lower back pain with radiation into her buttocks which concerned her. She states she is having trouble having her legs out in flexion at this time. She denies any chest pain or shortness of breath. She denies any chance of or changes in bowel or bladder. She denies any visual changes Related Data Home Medications ?Medication ?Instructions ?Recorded ?Confirmed cholecalciferol (vitamin D3) 50 50 mcg PO DAILY 03/03/22 02/07/25 mcg/drop (2,000 unit/drop) oral drops cyclobenzaprine 10 mg tablet 10 mg PO TID PRN #30 tabs 02/07/25 Previous Rx's ?Medication ?Instructions ?Recorded cyclobenzaprine 10 mg tablet 10 mg PO TID PRN #30 tabs 02/07/25 Allergies Allergy/AdvReac Type Severity Reaction Status Date / Time lactase Allergy Intermediate vomit Verified 02/07/25 12:51 Sulfa (Sulfonamide Allergy Intermediate Skin Rash Verified 02/07/25 12:51 Antibiotics) lactose AdvReac Intermediate intolerance Verified 02/07/25 12:51 - GI s/s Stuffy nose, coug, headache Allergy Mild Unknown Uncoded 02/07/25 12:51 General Stated Complaint: GenMedical LINDA: 3 Exam Narrative Exam Narrative: Alert and oriented 49-year-old female presenting in acute discomfort. Her pupils are equal round reactive light and accommodation her extraocular muscles are intact, hand grasp is intact and plantar and dorsiflexion intact lungs are clear to auscultation cardiac rate rhythm is regular no abdominal tenderness sensation and reflexes intact lower extremities. Neurovascularly intact, no nystagmus Course Vital Signs Vital signs: Vital Signs Temperature 36.6 C 02/07/25 12:48 Pulse 110 H 02/07/25 12:48 Respiratory Rate 18 02/07/25 12:48 Blood Pressure 144/90 H 02/07/25 12:48 Pulse Oximetry 99 02/07/25 12:48 Temperature 36.6 C 02/07/25 12:51 Pulse 110 H 02/07/25 12:51 Respiratory Rate 18 02/07/25 12:51 Respiratory Effort Normal 02/07/25 13:07 Respiratory Depth Normal 02/07/25 13:07 Respiratory Pattern Normal 02/07/25 13:07 Blood Pressure 144/90 H 02/07/25 12:51 Pulse Oximetry 99 02/07/25 12:51 Lab/Test Results Lab/Test Results: Laboratory Tests Range/Units 02/07/25 13:05 WBC (4.4-10.8) 10^3/uL 7.49 RBC (3.93-5.22) 10^6/uL 4.81 Hgb (11.2-15.7) g/dL 14.3 Hct (36.0-46.0) % 42.7 MCV (80-95) fL 89 MCH (27.0-33.0) pg 29.7 MCHC (32.0-36.0) % 33.5 RDW (11.7-14.6) % 12.2 Plt Count (130-400) 10^3/uL 228 MPV (8.0-11.0) fL 9.3 Immature Gran % % 0.1 Neutrophils % % 65.8 Lymphocytes % % 29.0 Monocytes % % 4.0 Eosinophils % % 0.7 Basophils % % 0.4 Nucleated RBC % (0.0-0.3) % 0.0 Absolute Neutrophils (1.2-6.7) 10^3/uL 4.93 Absolute Lymphocytes (1.2-3.4) 10^3/uL 2.17 Absolute Monocytes (0.1-0.8) 10^3/uL 0.30 Absolute Eosinophils (0.0-0.7) 10^3/uL 0.05 Absolute Basophils (0.0-0.2) 10^3/uL 0.03 ESR (0-20) mm/hr 9 Sodium (136-145) mmol/L 143 Potassium (3.5-5.1) mmol/L 2.9 L* Chloride (98-107) mmol/L 106 Carbon Dioxide (21.0-32.0) mmol/L 25.9 Anion Gap (3-11) mmol/L 11.1 H BUN (7-18) mg/dL 10 Creatinine (0.55-1.02) mg/dL 0.9 Est GFR (CKD-EPI 2020) (mL/min/1.73m2) 79.35 Glucose (74-106) mg/dL 105 Calcium (8.5-10.1) mg/dL 9.7 Total Bilirubin (0.2-1.0) mg/dL 1.2 H AST (15-37) U/L 18 ALT (14-59) U/L 21 Alkaline Phosphatase (46-116) U/L 62 C-Reactive Protein (<or=0.5) mg/dL < 0.50 Total Protein (6.4-8.2) g/dL 8.0 Albumin (3.4-5.0) g/dL 4.6 POC- Test(urine) Negative Medical Decision Making Results: CTA head and neck shows evidence of possible blush at C2-C3 adjacent to the neural foramina. The radiologist did state that there was a delay in contrast administration and this may cause artifact, recommended MRI/MRA of patient's neck, CBC CMP do not show evidence of acute abnormality aside from hypokalemia at 2.9, patient will receive 40 mEq of potassium, EKG does not show evidence of acute abnormality specifically no concerns for electrolyte derangement Assessment and plan: I spoke personally with the radiologist regarding this patient certainly at risk for vertebral artery dissection with yoga pose. I called the neurosurgery at [facility] and have ordered an MRI/MRA for further evaluation of patient's vertebral arteries and cervical spine. Patient is feeling marked improvement after administration of 5 mg followed by 2.5 mg of Valium, acetaminophen, magnesium, Decadron and Compazine. Patient remains neurologically intact without obvious sign of cerebellar injury, she was ambulatory into the emergency department with steady gait noted on initial assessment. She is pending MRI/MRA and neurosurgery review. Care be transitioned pending additional consultation and testing. 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) Intra-abdominal hernia (09/27/07) Fibromyalgia (05/23/04) Asthma without status asthmaticus (03/18/05) Acute low back pain (06/16/10) No significant past medical history Surgical History History of hernia repair Social History Smoking/Tobacco Use Status: Never Second Hand Exposure: No Smoking risk assessment performed?: Yes Alcohol Intake: never Drug use: Never Substance use type: does not use Adopted: No Caregiver/Support person: No Foster care: No Household members: spouse Housing: house Number of Children: 0 number of grandchildren: 0 Communication Needs: Corrective Lenses Education Level: college Do you need help understanding health information?: Rarely Pets and animals: No Sexually active: Yes Current gender identity: female What is your relationship status?: How often do you talk on the phone with friends or family?: once per week How often do you get together with friends or relatives?: three or more times per week Do you belong to any clubs or organized social groups?: no Panel score (0-1 are the most socially isolated patients): 2 What type of physical activity do you participate in: walking, aerobic and yoga Duration: 60-90 minutes/day Frequency: daily Special morales needs: No Seatbelt use: always Helmet use: Yes Drive intox or ride w/intox fence post driver: No Do you feel safe at home: Yes Do you feel safe in your relationship?: Yes
--- NOTE | 2025-02-07 16:45 | DI.MRI_ITS ---
Exam(s) MR ANGIO NECK WO CLINICAL HISTORY: neck pain concern for vertebral artery injury. TECHNIQUE: Performed on 1.5 giovanni unit with [id number] sequence CONTRAST MATERIAL: IV Contrast: None . COMPARISON: CTA earlier today FINDINGS: ANTERIOR CIRCULATION: Visualized common carotid arteries appear unremarkable and there are no significant findings at the level the carotid bulbs and proximal ICAs nor in the internal carotid arteries on both sides of the upper neck. No stenosis nor intraluminal thrombus nor dissection evident in these vessels. POSTERIOR CIRCULATION: Visualized vertebral arteries ascend with normal equal luminal diameters in the foramen transverse area. No intraluminal thrombus nor dissection. The left vertebral artery flow signal in the area of concern described on the recent CT scan appears unremarkable. IMPRESSION: No significant abnormal findings in the carotid and vertebral arteries within the field of view of this study. No evidence of stenosis, thrombosis, nor dissection of these vessels. DATA REPOSITORY:
--- NOTE | 2025-02-07 17:20 | DI.MRI_ITS ---
Exam(s) MR CERVICAL SPINE WO EXAM: MR CERVICAL SPINE WO CLINICAL HISTORY: cervical pain TECHNIQUE: Multiplanar multisequence MRI of the cervical spine was performed without intravenous contrast. COMPARISON: MR MR CERVICAL SPINE WO from 01/30/2024 FINDINGS: CERVICOMEDULLARY JUNCTION: Intact with no evidence of cerebellar tonsillar ectopia. No obvious abnormality of the odontoid process. No evidence of Chiari 1 malformation. CERVICAL SPINAL CORD: There is no abnormal signal in the cervical spinal cord and no evidence of focal cord atrophy nor focal cord swelling. OSSEOUS:There are no cervical fractures evident. No significant osseous lesions in the cervical vertebrae. There is a small focus of T1 and T2 bright signal in the left lamina of the C3 vertebral body which exhibits no abnormal signal on STIR imaging and is therefore an incidental small benign intraosseous hemangioma. AREA OF CONCERN ON RECENT CTA: There is no evidence of hemorrhage in the foramen transversarium on the left side in the upper cervical spine which was a finding of possible concern on the CT angiogram performed earlier today. INDIVIDUAL DISC LEVELS: All of the disc spaces in the cervical spine exhibit normal disc height and signal. C2-3: No disc herniation nor central canal stenosis. No foraminal stenosis. No facet arthropathy. No hemorrhage. No abnormal collection. C3-4: No disc herniation nor central canal stenosis.No facet arthropathy. No foraminal stenosis. No hemorrhage. No abnormal collection C4-5: No disc herniation nor central canal stenosis.No facet arthropathy. No foraminal stenosis. No hemorrhage. No abnormal collection. C5-6: No disc herniation or central canal stenosis. No facet arthropathy nor foraminal stenosis. No evidence of hemorrhage nor abnormal collection. C6-7: No disc herniation nor central canal stenosis. No facet arthropathy nor foraminal stenosis. No hemorrhage. No abnormal collection. C7-T1: No disc herniation nor central canal stenosis. No facet arthropathy.No foraminal stenosis. IMPRESSION: 1. No significant findings on this MRI scan of the cervical spine. All disc spaces exhibit normal disc height and signal and there is no evidence of disc herniation, central canal stenosis, nor foraminal stenosis. Facet joints appear unremarkable at all levels. 2. There is no evidence of hemorrhage and there are no abnormal collections. 3. See separate cervical MRA study report. Report called by myself to ER provider on 02/07/2025 at 5:33 p.m. DATA REPOSITORY:
--- NOTE | 2025-02-07 17:25 | W.EDPROG ---
Date of service: 02/07/25 Time of Service: 17:25 Medical Decision Making This dictation utilizes [id number] dictation software and may contain unedited grammatical errors. Patient seen in signout Jaci Sandoval PA-C, please see her complete note. 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 CTA was performed that questioned blush or a small dissection- but was somewhat equivocal- we obtained MRI & MRA which are pending- along with [facility] [place] time of sign[place]out. Patient had been give benzo for muscle relaxation with good relief prior to sign-out. Patients' medical history: Fibromyalgia. Family and social history: healthy, active. Differential / pathologies of concern include cervical strain, vertebral dissection, tension headache. Diagnostic studies of: -studies reviewed, MRI C-Spine and MRA Neck pending. -MRA neck shows no dissection, no blush -MRI C-spine shows no major pathology Interventions of: [place] [place] consult with on-call provider at 1713- updated on negative MRA results- reasonable to not start aspirin- recommend US of neck vessels in 6 months, plan to d/c with muscle relaxor by Rx. ED Course/Assessment/Plan: 49-year-old female injured her neck can cause headache during yoga, signed out to me with MRIs and MRI pending. The studies are negative, I spoke with [facility] [place] is reasonable to discharge the patient, recommend 6-month outpatient Doppler ultrasound of the neck vessels, counseled on taking cyclobenzaprine for likely neck strain causing tension headache, strict return criteria for any emergent concerns. Findings not consistent with Vertebral dissection, CVA, TIA, cervical fracture, disc herniation. Disposition of Headache, Neck Pain. Patient verbalized understanding of the plan and return to ED criteria and engaged in shared decision making. Medical Records Medical records reviewed: Yes I reviewed the patient's medical records. Imaging Data Radiologic Study: Attestation: I personally reviewed and interpreted this imaging study as follows: Imaging: CT Scan Radiologist's impression: EXAM: CT BRAIN NECK CTA CLINICAL HISTORY: neck injury during yoga, PHAN, dizziness, c2 pain. TECHNIQUE: Imaging Protocol: Axial CT angiography was performed with multi-slice acquisition and multi-planar and/or 3D reconstructions. CONTRAST MATERIAL: Intravenous: Omnipaque 350 Contrast volume:structured data in ml COMPARISON: CT CT THORACIC SPINE WO from 02/07/2025 FINDINGS: CTA Neck W: Aortic arch anatomy: The aortic arch anatomy is conventional and there is no significant stenosis at the origin of the great vessels off of the aortic arch. No intimal flap evident. Anterior circulation: Both common carotid arteries ascend with normal luminal diameters. At the level the carotid bulbs and proximal internal carotid arteries there is minimal plaque without hemodynamically significant stenosis evident. Posterior circulation: Both vertebral arteries originate in conventional fashion off of the subclavian arteries and there is no obvious stenosis at the origin of the vertebral arteries. Both vertebral arteries exhibit normal luminal diameters within the foramen transversarium. No evidence of stenosis, thrombosis, nor dissection. However, at C 2-3 and C3-4 levels in the left foramen transverse area and there is some vascular blush around the otherwise normal appearing vertebral arteries. Possibly significant Both vertebral arteries contribute to the formation of the basilar artery at the skull base. CTA Brain W: Anterior circulation: Both internal carotid arteries are patent in the skull base-carotid canals as well as within the cavernous sinuses. The supraclinoid aspects of the ICAs are patent. Both A1 segments are patent as are the anterior cerebral arteries and there is no evidence of aneurysm at the level of the anterior communicating artery. Both middle cerebral arteries are patent with no evidence of significant stenosis nor intraluminal thrombus. There also no aneurysms of these vessels. Posterior circulation: The basilar artery ascends in the midline. Distally it gives off patent bilateral superior cerebellar arteries. Above this level the basilar artery terminates as patent bilateral posterior cerebral arteries. There is no evidence of aneurysm at the tip of the basilar artery nor elsewhere in the [id number]-ee-[id number]. CT BRAIN: There is no evidence of intracranial hemorrhage, mass effect, or shift of midline structures. There are no extra-axial fluid collections. Ventricles are not enlarged or shifted. There are no ring enhancing lesions in the brain and no abnormal meningeal enhancement. IMPRESSION: 1. Patent carotid arteries in the neck. No hemodynamically significant stenosis. No dissection 2. Patent vertebral arteries. No thrombosis nor dissection. However, the C2-3 and C3-4 left neural foramina there is some vascular blush around the vertebral arteries. This may be artifact and related to slightly later than typical image acquisition on this study (therefore venous). Recommend MRI of the cervical spine. 3. Patent intracranial arteries. No stenosis nor thrombosis nor dissection. No evidence of intracranial hemorrhage, intra or extra-axial. No ring enhancing lesions in the brain. No vascular malformations Report called by myself to ER provider 02/07/2025 at 2:48 p.m. Radiologic Study #2: Attestation: I personally reviewed and interpreted this imaging study as follows: Imaging: CT Scan Radiologist's impression: EXAM: CT CERVICAL SPINE WO CLINICAL HISTORY: c2-3 pain, turned neck during yoga. TECHNIQUE: Imaging Protocol: Axial computed tomography images with coronal and sagittal reformatted images were created and reviewed COMPARISON: No exams were available for comparison FINDINGS: CERVICAL SPINE: There is no evidence of acute fracture. No significant prevertebral soft tissue swelling. No significant listhesis. No large disc protrusions evident. No disc space narrowing nor Luschka joint osteophytes. There is no significant facet arthropathy nor facet joint malalignment. No significant osseous lesions evident. Bone density normal IMPRESSION: No evidence of cervical spine fracture, malalignment, nor acute compromise of the cervical spinal canal. Radiologic Study #3: Attestation: I personally reviewed and interpreted this imaging study as follows: Imaging: CT Scan Radiologist's impression: EXAM: CT THORACIC SPINE WO CLINICAL HISTORY: thoracic pain post hyperextension and flexion. TECHNIQUE: Imaging Protocol: Axial computed tomography images with coronal and sagittal reformatted images were created and reviewed. CONTRAST MATERIAL: Intravenous: None COMPARISON: CT CT LUMBAR SPINE WO from 02/07/2025 FINDINGS: Bones: No evidence of thoracic vertebral fractures nor listhesis. No significant facet arthropathy nor facet joint malalignment. There is no scoliosis. Bone density normal. No osseous lesions. No spinal canal stenosis. Soft tissues: There are no large disk herniations seen. No evidence of paraspinal hematoma. IMPRESSION: No significant findings on this CT scan of the thoracic spinal column Radiologic Study #4: Attestation: I personally reviewed and interpreted this imaging study as follows: Imaging: CT Scan Radiologist's impression: EXAM: CT LUMBAR SPINE WO CLINICAL HISTORY: back pain. TECHNIQUE: Imaging Protocol: Axial computed tomography images with coronal and sagittal reformatted images were created and reviewed COMPARISON: CT CT THORACIC SPINE WO from 02/07/[address] BRAIN NECK CTA from 02/07/[address] CERVICAL SPINE WO from 02/07/2025 FINDINGS: Bones: There are no fractures, listhesis, nor pars defects. No disc space narrowing. Facet joints appear unremarkable. No degenerative changes. No facet malalignment.No sacral fractures nor lesions. SI joints appear unremarkable. INDIVIDUAL LEVELS: T12-L1:No disc herniation nor canal stenosis. Facet joints unremarkable. No foraminal stenosis. L1-2: No disc herniation nor canal stenosis. Facet joints unremarkable. No foraminal stenosis. L2-3: No disc herniation nor canal stenosis. Facet joints unremarkable. No Foraminal stenosis L3-4: No disc herniation nor significant canal stenosis. Facet joints unremarkable. No foraminal stenosis. L4-5: No disc herniation nor canal stenosis. Facet joints unremarkable. No foraminal stenosis. L5-S1: No disc herniation or canal stenosis. Facet joints unremarkable. No foraminal stenosis. The visualized sacroiliac joints and sacrum appear unremarkable. Sacral canal appears unremarkable. PARASPINAL SOFT TISSUES: Visualized paraspinal tissues appear unremarkable. Normal variant appearance of the transverse process is L1 noted. IMPRESSION: 1. No significant findings on this CT scan of the lumbosacral spinal column. 2. If clinically indicated follow-up MRI can be performed Report called by myself to ER provider 02/07/2025 at 2:30 p.m. Radiologic Study #5: Attestation: I personally reviewed and interpreted this imaging study as follows: Imaging: MRI Radiologist's impression: MR ANGIO NECK WO CLINICAL HISTORY: neck pain concern for vertebral artery injury. TECHNIQUE: Performed on 1.5 giovanni unit with [id number] sequence CONTRAST MATERIAL: IV Contrast: None . COMPARISON: CTA earlier today FINDINGS: ANTERIOR CIRCULATION: Visualized common carotid arteries appear unremarkable and there are no significant findings at the level the carotid bulbs and proximal ICAs nor in the internal carotid arteries on both sides of the upper neck. No stenosis nor intraluminal thrombus nor dissection evident in these vessels. POSTERIOR CIRCULATION: Visualized vertebral arteries ascend with normal equal luminal diameters in the foramen transverse area. No intraluminal thrombus nor dissection. The left vertebral artery flow signal in the area of concern described on the recent CT scan appears unremarkable. IMPRESSION: No significant abnormal findings in the carotid and vertebral arteries within the field of view of this study. No evidence of stenosis, thrombosis, nor dissection of these vessels. Radiologic Study #6: Attestation: I personally reviewed and interpreted this imaging study as follows: Imaging: MRI Radiologist's impression: EXAM: MR CERVICAL SPINE WO CLINICAL HISTORY: cervical pain TECHNIQUE: Multiplanar multisequence MRI of the cervical spine was performed without intravenous contrast. COMPARISON: MR MR CERVICAL SPINE WO from 01/30/2024 FINDINGS: CERVICOMEDULLARY JUNCTION: Intact with no evidence of cerebellar tonsillar ectopia. No obvious abnormality of the odontoid process. No evidence of Chiari 1 malformation. CERVICAL SPINAL CORD: There is no abnormal signal in the cervical spinal cord and no evidence of focal cord atrophy nor focal cord swelling. OSSEOUS:There are no cervical fractures evident. No significant osseous lesions in the cervical vertebrae. There is a small focus of T1 and T2 bright signal in the left lamina of the C3 vertebral body which exhibits no abnormal signal on STIR imaging and is therefore an incidental small benign intraosseous hemangioma. AREA OF CONCERN ON RECENT CTA: There is no evidence of hemorrhage in the foramen transversarium on the left side in the upper cervical spine which was a finding of possible concern on the CT angiogram performed earlier today. INDIVIDUAL DISC LEVELS: All of the disc spaces in the cervical spine exhibit normal disc height and signal. C2-3: No disc herniation nor central canal stenosis. No foraminal stenosis. No facet arthropathy. No hemorrhage. No abnormal collection. C3-4: No disc herniation nor central canal stenosis.No facet arthropathy. No foraminal stenosis. No hemorrhage. No abnormal collection C4-5: No disc herniation nor central canal stenosis.No facet arthropathy. No foraminal stenosis. No hemorrhage. No abnormal collection. C5-6: No disc herniation or central canal stenosis. No facet arthropathy nor foraminal stenosis. No evidence of hemorrhage nor abnormal collection. C6-7: No disc herniation nor central canal stenosis. No facet arthropathy nor foraminal stenosis. No hemorrhage. No abnormal collection. C7-T1: No disc herniation nor central canal stenosis. No facet arthropathy.No foraminal stenosis. IMPRESSION: 1. No significant findings on this MRI scan of the cervical spine. All disc spaces exhibit normal disc height and signal and there is no evidence of disc herniation, central canal stenosis, nor foraminal stenosis. Facet joints appear unremarkable at all levels. 2. There is no evidence of hemorrhage and there are no abnormal collections. 3. See separate cervical MRA study report. Lab Data Lab results reviewed: Yes I reviewed the patient's lab results. Labs: Laboratory Tests Range/Units 02/07/25 13:05 WBC (4.4-10.8) 10^3/uL 7.49 RBC (3.93-5.22) 10^6/uL 4.81 Hgb (11.2-15.7) g/dL 14.3 Hct (36.0-46.0) % 42.7 MCV (80-95) fL 89 MCH (27.0-33.0) pg 29.7 MCHC (32.0-36.0) % 33.5 RDW (11.7-14.6) % 12.2 Plt Count (130-400) 10^3/uL 228 MPV (8.0-11.0) fL 9.3 Immature Gran % % 0.1 Neutrophils % % 65.8 Lymphocytes % % 29.0 Monocytes % % 4.0 Eosinophils % % 0.7 Basophils % % 0.4 Nucleated RBC % (0.0-0.3) % 0.0 Absolute Neutrophils (1.2-6.7) 10^3/uL 4.93 Absolute Lymphocytes (1.2-3.4) 10^3/uL 2.17 Absolute Monocytes (0.1-0.8) 10^3/uL 0.30 Absolute Eosinophils (0.0-0.7) 10^3/uL 0.05 Absolute Basophils (0.0-0.2) 10^3/uL 0.03 ESR (0-20) mm/hr 9 Sodium (136-145) mmol/L 143 Potassium (3.5-5.1) mmol/L 2.9 L* Chloride (98-107) mmol/L 106 Carbon Dioxide (21.0-32.0) mmol/L 25.9 Anion Gap (3-11) mmol/L 11.1 H BUN (7-18) mg/dL 10 Creatinine (0.55-1.02) mg/dL 0.9 Est GFR (CKD-EPI 2020) (mL/min/1.73m2) 79.35 Glucose (74-106) mg/dL 105 Calcium (8.5-10.1) mg/dL 9.7 Total Bilirubin (0.2-1.0) mg/dL 1.2 H AST (15-37) U/L 18 ALT (14-59) U/L 21 Alkaline Phosphatase (46-116) U/L 62 C-Reactive Protein (<or=0.5) mg/dL < 0.50 Total Protein (6.4-8.2) g/dL 8.0 Albumin (3.4-5.0) g/dL 4.6 Discharge Plan Disposition Patient Disposition: Home Condition: Stable Discharge Details Clinical Impression: Headache, Neck pain Primary Care Provider: Maryjo Barraza ED Provider: Ronny Elizalde Home Meds and New Rx's Prescriptions: New cyclobenzaprine 10 mg tablet 10 mg PO TID PRNQty: 30 0RF Continued cholecalciferol (vitamin D3) 50 mcg/drop (2, 000 unit/drop) drops 50 mcg PO DAILY Discharge Instructions Instructions: Cyclobenzaprine, Headache, Adult ED, Neck Pain ED Additional Instructions: You were seen in the emergency department for your headache and neck pain, your CT scan had an equivocal read for was called a vertebral dissection but you have no symptoms of this and your MRI shows no abnormality. I spoke with vascular surgery on-call at [facility] they agree that we do not need to treat this but I do recommend that you get an ultrasound of the vessels of your neck in about 6 months by outpatient study. Please use therapeutic dosing of Tylenol (acetamenophen) & Advil (ibuprofen) in an alternating fashion as follows: Take 1000mg of Tylenol every 6 hours without missing doses- that is 4 times per day. Correction in between the Tylenol dosings, take 400-600mg of Advil also on a 6 hour schedule, that is also 4 times per day. The daily maximum dosing of Tylenol is 4000mg, and the daily maximum dosing of Advil is 2400mg. This is safe to do for weeks. Please note that some common cold medications & prescription pain medications may contain acetamenophen and you need to read OTC drug labels and factor that in to maximum daily dosings. Take the prescribed cyclobenzaprine for muscle relaxation 3 times as needed daily, take it easy on neck exercises until you improve, if you start to experience any neurological symptoms you need to present to a tertiary care center, please return for any emergent concerns Referrals: Maryjo Barraza, [place] [Primary Care Provider, Medicine]
[2025-02-08 11:17] LABS: Lyme Ab w Rflx to Lyme Confirm Negative (Negative)
[2025-02-09 22:40] LABS: B. miyamotoi PCR Negative (Negative); Babesia divergens/MO-1 Negative (Negative); Ehrlichia muris eauclairensis Negative (Negative)
== END 2025-02-07 17:51 | disposition home or self-care (01) ==
PROVIDERS: Physician Assistant; Emergency Provider Physician Assistant; PCP Nurse Practitioner
DX: M54.2 Cervicalgia (principal); R51.9 Headache, unspecified
CPT/HCPCS: 00123; 70496; 70498; 70547; 80053; 81025; 85652; 87798; 93005; 96361; 96365; 96375; 96376; 99285; 72125; 72128; 72131; 72141; 85025; 86140; 86618; 93010; 99284; J0131; J0780; J1100; J3360; J3475